=== PATIENT | male | born 1975 | race Two or more races ===

== ENCOUNTER 2024-02-09 17:26 | Inpatient (IN) | payer OTHER ==
[~2024-02-09] VITALS: Ht 182.9 cm; Wt 90.7 kg
[2024-02-09] MEDS ORDERED: 0.9 % SODIUM CHLORIDE 1,000 ML IV STA (18:18)
[2024-02-09] MEDS ORDERED: FLUMAZENIL 0.5 MG/5ML ML IV STA (18:18)
[2024-02-09] MEDS ORDERED: NALOXONE HCL 0.4 MG/ML AMPUL IV STA (18:19)
[2024-02-09 18:53] LABS: INR 1.19; PARTIAL THROMBOPLASTIN TIME 28.2 SECONDS (22.0-34.0); PROTHROMBIN TIME 12.3 SECONDS (9.0-11.5)
[2024-02-09 18:59] LABS: ALBUMIN 3.9 gm/dL (3.4-5.0); BILIRUBIN TOTAL 1.86 mg/dL (0.3-1.2); CALCIUM 8.8 mg/dL (8.5-10.1); CREATININE SERUM 1.45 mg/dL (0.70-1.30); GFR 51.94; GLOBULINA 3.6 G/DL (2.4-3.5); HEMOGLOBIN 16.1 g/dL (13-16.00); MEAN CELL VOLUME 82.5 fL (80.0-100.00); MEAN CORPUSCULAR HEMOGLOBIN 29.6 pg (27.00-32.0); MEAN CORPUSCULAR HGB CONC 35.8 g/dl (32.0-36.0); PLATELET COUNT 135 K/uL (150-450); POTASSIUM 3.09 mEq/L (3.5-5.1); RED BLOOD COUNT 5.46 M/uL (4.00-6.00); RED CELL DISTRIBUTION WIDTH 13.3 % (11.5-14.5); TOTAL PROTEIN 7.5 gm/dL (6.4-8.2)
[2024-02-09 19:10] LABS: URINE APPEARANCE Clear; URINE BILIRRUBIN Negative (NEGATIVE); URINE BLOOD NHT; URINE COLOR Yellow; URINE GLUCOSE Negative (NEGATIVE); URINE LEUKOCYTE Negative; URINE NITRATE Negative; URINE PROTEIN Negative (NEGATIVE)
[2024-02-09 19:13] LABS: URINE EPITHELIAL CELLS 3.3 uL (0.0-38.8); URINE RBC 20.9 uL (0.0-20.8)
[2024-02-09 19:14] LABS: ABG PH 7.389 (7.35-7.45)
[2024-02-09 19:15] LABS: ABG PO2 88.8 mmHg (80-100); ABG pCO2 42.2 mmHg (35-45); BASE EXCESS -0.1 mmol/l; BICARBONATE 24.9 mmol/l (23-25); SaO2 96.7 %; Tco2 26.2 mmol/l; allen test SATISFACTORY; o2 32 %; puncture site RADIAL RIGHT
[2024-02-09 19:19] LABS: URINE BACTERIA 2.5 uL (0.0-1933); URINE WBC 1.5 uL (0.0-23.2)
[2024-02-09] MEDS ORDERED: cloNIDine HCL 0.2 MG TABLET PO STA (20:16)
[2024-02-09 22:58] LABS: COCAINE NEGATIVE (NEGATIVE); METHADONE NEGATIVE (NEGATIVE); OPIATES POSITIVE (NEGATIVE); THC ( Cannabinoids) POSITIVE (NEGATIVE)
[2024-02-10] MEDS ORDERED: FLUMAZENIL 0.5 MG/5ML ML IV STA (01:22)
[2024-02-10] MEDS ORDERED: NALOXONE HCL 0.4 MG/ML AMPUL IV STA (01:23)
[2024-02-10] MEDS ORDERED: ENALAPRILAT DIHYDRATE 1.25 MG/ML VIAL IV STA (01:26)
[2024-02-10] MEDS ORDERED: ENALAPRILAT DIHYDRATE 1.25 MG/ML VIAL IV PRN (12:45)
[2024-02-10] MEDS ORDERED: POTASSIUM CHLORIDE 20MEQ/100ML H2O PB IV ONE (12:45)
[2024-02-10] MEDS ORDERED: 0.9 % SODIUM CHLORIDE 1,000 ML IV SCH (12:45)
[2024-02-10] MEDS ORDERED: DIPHENHYDRAMINE HCL 50 MG/ML VIAL 1ML IM PRN (18:30)
[2024-02-10] MEDS ORDERED: HALOPERIDOL LACTATE 5 MG/ML AMPUL IM PRN (18:30)
[2024-02-11 08:21] LABS: ALBUMIN 3.8 gm/dL (3.4-5.0); BILIRUBIN TOTAL 1.76 mg/dL (0.3-1.2); CALCIUM 8.7 mg/dL (8.5-10.1); CHOL HDL RATIO 5.5 (0-5.0); CREATININE SERUM 0.82 mg/dL (0.70-1.30); GFR 100.28; GLOBULINA 3.5 G/DL (2.4-3.5); MAGNESIUM 2.2 mg/dL (1.8-2.4); PHOSPHOROUS 2.7 mg/dL (2.5-4.9); POTASSIUM 3.5 mEq/L (3.5-5.1); TOTAL PROTEIN 7.3 gm/dL (6.4-8.2); TSH 2.82 uIU/mL (0.358-3.74)
[2024-02-11 08:56] LABS: HEMATOCRIT 47.6 % (39.0-48.0); MEAN CORPUSCULAR HEMOGLOBIN 29.8 pg (27.00-32.0); MEAN CORPUSCULAR HGB CONC 35.9 g/dl (32.0-36.0); RED BLOOD COUNT 5.73 M/uL (4.00-6.00); RED CELL DISTRIBUTION WIDTH 13.6 % (11.5-14.5)
[2024-02-11 08:57] LABS: PLATELET COUNT 119 K/uL (150-450)
[2024-02-11 08:58] LABS: HEMOGLOBIN 17.1 g/dL (13-16.00)
[2024-02-12 08:17] LABS: ALBUMIN 3.2 gm/dL (3.4-5.0); BILIRUBIN TOTAL 1.53 mg/dL (0.3-1.2); CALCIUM 8.5 mg/dL (8.5-10.1); CREATININE SERUM 0.82 mg/dL (0.70-1.30); GFR 100.28; GLOBULINA 3.3 G/DL (2.4-3.5); PHOSPHOROUS 2.1 mg/dL (2.5-4.9); POTASSIUM 3.33 mEq/L (3.5-5.1); TOTAL PROTEIN 6.5 gm/dL (6.4-8.2)
[2024-02-12] MEDS ORDERED: CHLORHEXIDINE GLUCONATE 120 ML BOTTLE TOP ONE (09:50)
[2024-02-12] MEDS ORDERED: POTASSIUM CHLORIDE 20MEQ/100ML H2O PB IV ONE (11:15)
[2024-02-12] MEDS ORDERED: POTASSIUM PHOS,M-BASIC-D-BASIC 3 MM/ML VIAL IV ONE (13:00)
[2024-02-13 10:36] LABS: HEMATOCRIT 40.5 % (39.0-48.0); HEMOGLOBIN 14.7 g/dL (13-16.00); MEAN CELL VOLUME 82.3 fL (80.0-100.00); MEAN CORPUSCULAR HEMOGLOBIN 29.8 pg (27.00-32.0); MEAN CORPUSCULAR HGB CONC 36.2 g/dl (32.0-36.0); PLATELET COUNT 114 K/uL (150-450); RED BLOOD COUNT 4.92 M/uL (4.00-6.00); RED CELL DISTRIBUTION WIDTH 13.3 % (11.5-14.5)
[2024-02-13 11:34] LABS: ALBUMIN 3.6 gm/dL (3.4-5.0); BILIRUBIN TOTAL 1.6 mg/dL (0.3-1.2); CREATININE SERUM 1.07 mg/dL (0.70-1.30); GFR 73.76; GLOBULINA 3.4 G/DL (2.4-3.5); MAGNESIUM 1.9 mg/dL (1.8-2.4); POTASSIUM 3.37 mEq/L (3.5-5.1)
[2024-02-13 11:43] LABS: PHOSPHOROUS 1.4 mg/dL (2.5-4.9)
[2024-02-13] MEDS ORDERED: CLONIDINE HCL 0.1 MG TABLET PO STA (13:24)
[2024-02-13] MEDS ORDERED: POTASSIUM PHOS,M-BASIC-D-BASIC 3 MM/ML VIAL IV ONE (14:00)
[2024-02-13] MEDS ORDERED: CLONIDINE HCL 0.1 MG TABLET PO SCH (21:00)
[2024-02-14 07:50] LABS: ALBUMIN 3.5 gm/dL (3.4-5.0); BILIRUBIN TOTAL 1.35 mg/dL (0.3-1.2); CALCIUM 8.7 mg/dL (8.5-10.1); CREATININE SERUM 0.98 mg/dL (0.70-1.30); GFR 81.63; MAGNESIUM 1.9 mg/dL (1.8-2.4); PHOSPHOROUS 3.2 mg/dL (2.5-4.9); POTASSIUM 3.28 mEq/L (3.5-5.1); TOTAL PROTEIN 6.5 gm/dL (6.4-8.2)
[2024-02-14 14:26] LABS: HEMATOCRIT 43.5 % (39.0-48.0); HEMOGLOBIN 15.8 g/dL (13-16.00); MEAN CELL VOLUME 81.6 fL (80.0-100.00); MEAN CORPUSCULAR HEMOGLOBIN 29.6 pg (27.00-32.0); MEAN CORPUSCULAR HGB CONC 36.3 g/dl (32.0-36.0); RED BLOOD COUNT 5.33 M/uL (4.00-6.00); RED CELL DISTRIBUTION WIDTH 13.9 % (11.5-14.5)
[2024-02-14 14:27] LABS: PLATELET COUNT 142 K/uL (150-450)
[2024-02-15 04:42] LABS: HEMATOCRIT 41.6 % (39.0-48.0); MEAN CELL VOLUME 81.7 fL (80.0-100.00); MEAN CORPUSCULAR HEMOGLOBIN 29.4 pg (27.00-32.0); RED BLOOD COUNT 5.09 M/uL (4.00-6.00); RED CELL DISTRIBUTION WIDTH 13.6 % (11.5-14.5)
[2024-02-15 04:51] LABS: PLATELET COUNT 128 K/uL (150-450)
[2024-02-15] MEDS ORDERED: POTASSIUM CHLORIDE 20MEQ/100ML H2O PB IV ONE (07:30)
== END 2024-02-15 12:41 | disposition designated cancer center or children's hospital (05) | DRG 897 ==
LOC: ER 17:26 → ICU 02-10 13:49 → ICU-2 02-10 13:49 → ICU 02-10 18:30 → MEDI 02-13 20:16
PROVIDERS: Internal Medicine; ADMIT Internal Medicine; ATTEND Internal Medicine
PROC: B24BYZZ Ultrasonography of Heart with Aorta using Other Contrast (ICD-10-PCS; principal; 2024-02-10)
DX: F19.129 Other psychoactive substance abuse with intoxication, unspecified (principal); R00.1 Bradycardia, unspecified; T14.91XA Suicide attempt, initial encounter; X83.8XXA Intentional self-harm by other specified means, initial encounter; Y93.9 Activity, unspecified; Y92.9 Unspecified place or not applicable; Y99.9 Unspecified external cause status; E87.6 Hypokalemia; E86.0 Dehydration